=== PATIENT | male | born 1945 | race Caucasian/White ===

== ENCOUNTER 2022-01-13 06:37 | Day surgery (SDC) | payer MEDICARE, OTHER ==
[~2022-01-13] VITALS: Ht 172.7 cm; Wt 79.4 kg
[~2022-01-13 06:37] MED LIST: AMLO-489 PO; ASPI-543 PO; CLON-853 PO; FAMO-12 PO; SOTA80TA PO; TEMA30CA PO
[2022-01-13] MEDS ORDERED: fentaNYL CITRATE 100 MCG/2 ML VL ONE (07:35)
[2022-01-13] MEDS ORDERED: HEPARIN SODIUM (PORCINE) 5000 UNITS/ML 1ML VIAL ONE (07:35)
[2022-01-13] MEDS ORDERED: VERAPAMIL 2.5MG/ML INJ 2ML VIAL IV ONE (07:35)
[2022-01-13] MEDS ORDERED: ANGIOMAX 250 MG VIAL IV ONE (07:35)
[2022-01-13] MEDS ORDERED: MIDAZOLAM HCL 2MG/2ML 2ml VIAL (1mg/ml) ONE (07:36)
[2022-01-13] MEDS ORDERED: LIDOCAINE 2%HCL (LOCAL ANESTH.) INJ 10ml MDV ONE (07:36)
[2022-01-13] MEDS ORDERED: SODIUM CHL 0.9% 0 ML ONE (07:36)
[2022-01-13] MEDS ORDERED: IODIXANOL 320MG/ML 100ML BTL IV ONE (07:39)
== END 2022-01-13 12:36 | disposition home or self-care (01) ==
LOC: CATH 06:37
PROVIDERS: ATTEND Internal Medicine Cardiovascular Disease
DX: R94.39 Abnormal result of other cardiovascular function study (principal); I25.10 Atherosclerotic heart disease of native coronary artery without angina pectoris; I10 Essential (primary) hypertension; Z20.822 Contact with and (suspected) exposure to COVID-19; Z82.49 Family history of ischemic heart disease and other diseases of the circulatory system; Z83.3 Family history of diabetes mellitus; Z87.891 Personal history of nicotine dependence
CPT/HCPCS: 93458; C1769; C1894; J1644; J2001; J2250; J3010; J7040; Q9967; U0003; 99152; 99153

== ENCOUNTER 2024-04-10 08:46 | Inpatient (IN) | payer MEDICARE, OTHER ==
[~2024-04-10] VITALS: Ht 167.6 cm; Wt 79.6 kg
[~2024-04-10 08:46] MED LIST changes: -AMLO-489 PO; +AMLO1TAB22 PO
[2024-04-10] MEDS ORDERED: amLODIPine BESYLATE 5 MG TAB PO ONE (10:15)
[2024-04-10 10:28] VITALS: PULSE 47; RESP 16; O2SAT 97
[2024-04-10 10:41] LABS: Basophils # (auto) 0.1 10 ^3/uL (0-0.2); Basophils % (auto) 1.1 % (0.0-2.0); Eosinophils # (auto) 0.3 10 ^3/uL (0-0.8); Hematocrit 44.6 % (41.0-53.0); Hemoglobin 15.8 g/dL (13.5-17.5); Lymphocytes # (auto) 1.5 10 ^3/uL (0.4-5.4); Lymphocytes % (auto) 16.9 % (10.0-50.0); Mean Corpuscular Hemoglobin 33.9 pg (28.0-32.0); Mean Corpuscular Hgb Conc. 35.4 g/dL (32.0-36.0); Mean Corpuscular Volume 95.7 fL (80.0-100.0); Monocytes # (auto) 0.6 10 ^3/uL (0-1.3); Monocytes % (auto) 6.8 % (0.0-12.0); Neutrophils # (auto) 6.2 10 ^3/uL (1.6-8.6); Neutrophils % (auto) 72.2 % (37.0-80.0); Platelet Count (auto) 186 10^3/uL (140-450); Red Blood Cells 4.66 10^6/uL (4.5-5.90); Red Cell Distribution Width 15.1 % (11.8-14.3); White Blood Cell 8.6 10^3/uL (4.4-10.8)
[2024-04-10 10:49] LABS: Chloride 107 mmol/L (98-107); Potassium 4.4 mmol/L (3.5-5.1); Sodium 139 mmol/L (136-145)
[2024-04-10 10:50] LABS: Anion Gap 2 (5-15); Calcium 10.1 mg/dL (8.7-10.4); Carbon Dioxide 30 mmol/L (20-30)
[2024-04-10 10:55] LABS: BUN/Creatinine Ratio 7.4 (10.0-20.0); Blood Urea Nitrogen 7 mg/dL (9-23); Glucose 94 mg/dL (74-106)
[2024-04-10] MEDS ORDERED: MORPHINE SULFATE INJ 2 MG/ml SYRG IV PRN (14:00)
[2024-04-10] MEDS: SODIUM CHLORIDE 0.9% 1,000 ML IV SCH (14:00)
[2024-04-10] MEDS ORDERED: NITROGLYCERIN 0.4 MG SL TAB SL PRN (14:00)
[2024-04-10] MEDS ORDERED: ONDANSETRON HCL 4 MG/2 ML VIAL IV PRN (14:00)
[2024-04-10] MEDS ORDERED: FAMOTIDINE 20 MG TAB PO SCH (14:30)
[2024-04-10] MEDS ORDERED: PATIENTS OWN MEDICATION (Clonazepam 1 TAB) PO SCH (14:30)
[2024-04-10] MEDS ORDERED: TEMAZEPAM 15 MG PO SCH (14:30)
[2024-04-10 18:24] VITALS: PULSE 47; RESP 16; O2SAT 94
[2024-04-10 20:00] VITALS: PULSE 50; RESP 20; O2SAT 95
[2024-04-10 21:00] VITALS: BP 157/75; PULSE 50; RESP 20; TEMP 98; O2SAT 95
[2024-04-10] MEDS ORDERED: SOTALOL HCL 80 MG TAB PO SCH (22:00)
[2024-04-10] MEDS: SOTALOL HCL 80 MG TAB PO SCH (22:00)
[2024-04-11] VITALS (10 sets, daily range): BP systolic 117–163; BP diastolic 63–86; PULSE 19–56; RESP 14–22; TEMP 97.8–98.1; O2SAT 94–99
[2024-04-11 06:49] LABS: Alanine Aminotransferase 24 U/L (7-40); Albumin 4.1 g/dL (3.2-4.8); Alkaline Phosphatase 45 U/L (46-116); Anion Gap 6 (5-15); Aspartate Aminotransferase 15 U/L (13-40); BUN/Creatinine Ratio 9.5 (10.0-20.0); Blood Urea Nitrogen 8 mg/dL (9-23); Calcium 9.5 mg/dL (8.7-10.4); Carbon Dioxide 27 mmol/L (20-30); Chloride 106 mmol/L (98-107); Glucose 91 mg/dL (74-106); Potassium 3.7 mmol/L (3.5-5.1); Sodium 139 mmol/L (136-145)
[2024-04-11 06:50] LABS: Bilirubin, Total 1.7 mg/dL (0.2-1.0); Total Protein 6.4 g/dL (5.7-8.2)
[2024-04-11 07:01] LABS: Urine Bacteria None Seen /hpf (None Seen); Urine WBC None Seen /hpf (0 - 3)
[2024-04-11 07:17] LABS: Urine Blood Negative /uL (Negative); Urine Clarity Clear (Clear); Urine Color Light-Yellow (Yellow); Urine Protein, UAD Negative (Negative); Urine Urobilinogen Normal (Negative); Urine pH 6.5 (5.0-9.0)
[2024-04-11 07:41] LABS: Basophils # (auto) 0.1 10 ^3/uL (0-0.2); Basophils % (auto) 1.1 % (0.0-2.0); Eosinophils # (auto) 0.2 10 ^3/uL (0-0.8); Eosinophils % (auto) 3.1 % (0.0-7.0); Hematocrit 41.6 % (41.0-53.0); Hemoglobin 14.8 g/dL (13.5-17.5); Lymphocytes # (auto) 1.4 10 ^3/uL (0.4-5.4); Lymphocytes % (auto) 18.9 % (10.0-50.0); Mean Corpuscular Hemoglobin 33.7 pg (28.0-32.0); Mean Corpuscular Hgb Conc. 35.4 g/dL (32.0-36.0); Monocytes # (auto) 0.6 10 ^3/uL (0-1.3); Monocytes % (auto) 8.1 % (0.0-12.0); Neutrophils # (auto) 5.2 10 ^3/uL (1.6-8.6); Neutrophils % (auto) 68.8 % (37.0-80.0); Nucleated Red Blood Cells % 0.1 %; Platelet Count (auto) 169 10^3/uL (140-450); Red Blood Cells 4.38 10^6/uL (4.5-5.90); Red Cell Distribution Width 14.7 % (11.8-14.3); White Blood Cell 7.5 10^3/uL (4.4-10.8)
[2024-04-11] MEDS: ASPirin-EC 81 mg tab PO SCH (10:15)
[2024-04-11] MEDS: amLODIPine BESYLATE 5 MG TAB PO SCH (10:15)
[2024-04-11] MEDS: DOCUSATE SOD 100 MG CAP PO PRN (10:23)
[2024-04-11] MEDS: ACETAMINOPHEN 325 MG TAB PO PRN (15:14)
[2024-04-11] MEDS: clonazePAM 0.5 MG TAB PO PRN (17:26)
[2024-04-11] MEDS: TEMAZEPAM 15 MG CAP PO PRN (22:06)
[2024-04-12] VITALS (10 sets, daily range): BP systolic 108–163; BP diastolic 52–79; PULSE 51–74; RESP 16–18; TEMP 97.8–98.2; O2SAT 95–100
[2024-04-12] MEDS: LORazepam 2MG/ML-1ML VIAL IV ONE (09:17)
[2024-04-12] MEDS: PANTOPRAZOLE 40 MG TAB PO SCH (17:27)
[2024-04-13 01:00] VITALS: BP 142/75; PULSE 58; RESP 18; TEMP 98; O2SAT 97
[2024-04-13 05:00] VITALS: BP 138/76; PULSE 57; RESP 18; TEMP 97.8; O2SAT 97
[2024-04-13 08:00] VITALS: PULSE 53; RESP 16; O2SAT 99
[2024-04-13 09:00] VITALS: BP 142/66; PULSE 63; RESP 17; TEMP 98.3; O2SAT 92
[2024-04-13] MEDS ORDERED: BUTA-259 PO (11:56)
[2024-04-13 12:29] VITALS: BP 142/66; PULSE 63; TEMP 36.8
== END 2024-04-13 13:15 | disposition home or self-care (01) | DRG 552 ==
LOC: ER 08:46 → OVERFLOW 14:15 → WEST WING 18:37
PROVIDERS: ADMIT Nurse Practitioner Family; ATTEND Family Medicine
PROC: 5A09357 Assistance with Respiratory Ventilation, Less than 24 Consecutive Hours, Continuous Positive Airway Pressure (ICD-10-PCS; principal; 2024-04-11)
DX: M54.2 Cervicalgia (principal); I47.10 Supraventricular tachycardia, unspecified; R51.9 Headache, unspecified; I10 Essential (primary) hypertension; I49.3 Ventricular premature depolarization; F41.9 Anxiety disorder, unspecified; Z90.49 Acquired absence of other specified parts of digestive tract; Z83.3 Family history of diabetes mellitus; Z82.49 Family history of ischemic heart disease and other diseases of the circulatory system; Z85.820 Personal history of malignant melanoma of skin
CPT/HCPCS: 36415; 70450; 70551; 80048; 80053; 81001; 83880; 84484; 85025; 93005; 93886; 94660; 96360; G0378

== ENCOUNTER 2025-02-05 07:56 | Emergency (ER) | payer MEDICARE, OTHER ==
[~2025-02-05] VITALS: Ht 172.7 cm; Wt 98.4 kg
[~2025-02-05 07:56] MED LIST changes: +BUTA-259 PO
--- NOTE | 2025-02-05 08:05 | ED.PDOC ---
Eye-HPI HPI Comments 79-year-old male presents to the emergency department which she complaining of left ear pain. Patient states that he has been experiencing left ear pain with associated intermittent hearing loss x1 month. Patient endorses being seen by EENT specialist and being departed home with no significant findings. Patient denies foreign body insertion, fever, recent swimming, headache, or sore-throat. No other symptoms or modifying factors present at this time. Time Seen by MD: 08:00 Primary Care Provider: LUIS Kenney Notes: Nurses Notes, Medications, Allergies Allergies: Coded Allergies: NO KNOWN ALLERGIES (Unverified , 07/22/16) Home Meds Active Scripts Csjjilcrkj-Tbzoojgobiqqz-Raaru (FIORICET TABLET) 1 Tab Tb, 1 TAB PO TID PRN, #20 TAB Prov:BEVERLY SCHMIDT MD 04/13/24 Reported Medications Aspirin (Aspir-Low) 81 Mg Tab, 81 MG PO DAILY 01/11/22 Temazepam (Temazepam) 30 Mg Cap, 15 MG PO PRN 01/11/22 Clonazepam (Clonazepam) 1 Mg Tab, 1 TAB PO PRN 01/11/22 Famotidine (Famotidine) 20 Mg Tab, 40 MG PO PRN 01/11/22 Sotalol Hcl (Sotalol Hcl) 80 Mg Tab, 40 MG PO BID 01/11/22 Amlodipine Besylate (Amlodipine Besylate) 5 Mg Tab, 10 MG PO DAILY 01/11/22 Information Source: Patient Mode of Arrival: Ambulatory Timing: Months Duration: Since onset Prehospital treatment: None Quality: Pain, Hearing loss Lids: Normal Conjunctiva: Normal Cornea: Normal Pupils: Normal EOM: Normal Fundus: Normal Slit lamp exam: Normal Anterior chamber: Normal Mouth: Normal ENT Ear Exam: Normal Nose: Normal Sinuses: Normal Oropharynx: Normal Onset: Spontaneous Throat Exposed to: None History of: None Last Tetanus: Unknown Modifying factors: Nothing Associated signs and symptoms: None Past Medical History PAST MEDICAL HISTORY: HTN Surgical History: Cholecystectomy, Hernia Repair Family History Family History: Family hx of DM, Family hx of HTN Social History Smoker: Non-Smoker Alcohol: Denies ETOH Use Drugs: Denies Drug Use Lives In: Home Constitutional: denies: chills, diaphoresis, fatigue, fever, malaise, sweats, weakness, others EENTM: reports: ear pain; denies: blurred vision, double vision, ear bleeding, ear discharge, ear drainage, ear ringing, eye pain, eye redness, hearing loss, mouth pain, mouth swelling, nasal discharge, nose bleeding, nose congestion, nose pain, photophobia, tearing, throat pain, throat swelling, voice changes, others Respiratory: denies: cough, hemoptysis, orthopnea, SOB at rest, shortness of breath, SOB with excertion, stridor, wheezing, others Cardiovascular: denies: chest pain, dizzy spells, diaphoresis, Dyspnea on exertion, edema, irregular heart beat, left arm pain, lightheadedness, palpitations, PND, syncope, others Gastrointestinal: denies: abdomen distended, abdominal pain, blood streaked bowels, constipated, diarrhea, dysphagia, difficulty swallowing, hematemesis, melena, nausea, poor appetite, poor fluid intake, rectal bleeding, rectal pain, vomiting, others Genitourinary: denies: burning, dysuria, flank pain, frequency, hematuria, incontinence, penile discharge, penile sore, pain, testicle pain, testicle swe lling, urgency, others Neurological: denies: dizziness, fainting, headache, left sided numbness, left sided weakness, numbness, paresthesia, pre-existing deficit, right sided numbness, right sided weakness, seizure, speech problems, tingling, tremors, weakness, others Musculoskeletal: denies: back pain, gout, joint pain, joint swelling, muscle pain, muscle stiffness, neck pain, others Integumetry: denies: bruises, change in color, change in hair/nails, dryness, laceration, lesions, lumps, rash, wounds, others Allergic/Immunocompromised: denies: Difficulty Healing, Frequent Infections, Hives, Itching, others Hematologic/Lymphatic: denies: anemia, blood clots, easy bleeding, easy bruising, swollen glands, others Endocrine: denies: excessive hunger, excessive sweating, excessive thirst, excessive urination, flushing, intolerance to cold, intolerance to heat, unexplained weight gain, unexplained weight loss, others Psychiatric: denies: anxiety, bipolar disorder, depression, hopeless, panic disorder, schizophrenia, sleepless, suicidal, others All Other Systems: Reviewed and Negative Physical Exam General Appearance: Moderate Distress HEENT: Normal ENT Inspection, Pharynx Normal, TMs Normal Neck: Full Range of Motion, Non-Tender, Normal, Normal Inspection Respiratory: Chest Non-Tender, Lungs Clear, No Accessory Muscle Use, No Respiratory Distress, Normal Breath Sounds Cardiovascular: No Edema, No JVD, No Murmur, No Gallop, Normal Peripheral Pulses, Regular Rate/Rhythm Breast Exam: Deferred Gastrointestinal: No Organomegaly, Non Tender, No Pulsatile Mass, Normal Bowel Sounds, Soft Genitalia: Deferred Pelvic: Deferred Rectal: Deferred Extremities: No calf tenderness, Normal capillary refill, Normal inspection, Normal range of motion, Non-tender, No pedal edema Musculoskeletal : Apperance: Normal Neurologic: Alert, switchboard inspector II-XII nml as Tested, No Motor Deficits, Normal Affect, Normal Mood, No Sensory Deficits Cerebellar Function: Normal Reflexes: Normal Skin: Dry, Normal Color, Warm Peripheral Pulses: 3+ Radial (R), 3+ Radial (L) Lymphatic: No Adenopathy Was a procedure done? Was a procedure done?: No EENT DIFF Eye: N/A Ear: Cerumen Impaction, Otitis Media Nose: N/A Mouth: N/A Sore Throat: N/A X-Ray, Labs, Meds, VS Vital Signs Date Time Temp Pulse Resp B/P (MAP) Pulse Ox O2 Delivery O2 Flow Rate FiO2 02/05/25 08:13 97.8 53 20 145/70 (95) 97 97.8 Patient alert. Complaining of hearing problem in the left side. Vitals stable. Answering questions. Examination pristine of the ear. Possibly inner ear. Presbycusis. Explained to the patient. Possibly need an outpatient MRI of the inner ear. Was told to follow up with the ENT surgeon. Was told to follow up with his primary care physician. Was told to come back if there is any problem. Time of 1ST Reevaluation: 08:30 Reevaluation 1ST: Improved Patient Education/Counseling: Diagnosis, Treatment Family Education/Counseling: No Family Present SEPSIS Sepsis Screen Vital Signs Date Time Temp Pulse Resp B/P (MAP) Pulse Ox O2 Delivery O2 Flow Rate FiO2 02/05/25 08:13 97.8 53 20 145/70 (95) 97 97.8 Departure 1 Departure Time of Disposition: 09:11 Impression: Primary Impression: Presbycusis Qualified Codes: H91.12 - Presbycusis, left ear Disposition: 01 HOME / SELF CARE / HOMELESS Condition: Good Discharged With: Self Critical Care Note Critical Care Time?: No Stability Stability form required: No Heart Score Heart Score: Heart Score Response (Comments) Value History N/A 0 EKG N/A 0 Age N/A 0 Risk Factors N/A 0 Troponin N/A 0 Total 0 I personally scribed for MAGUI OH MD ([email or web address]) on 02/05/25 at 08:05. Electronically submitted by Raisa Denny ([email or web address]). I personally scribed for MAGUI OH MD ([email or web address]) on 02/05/25 at 08:22. Electronically submitted by Raisa Denny ([email or web address]). MAGUI OH MD Feb 05, 2025 08:05
[2025-02-05 08:13] VITALS: BP 145/70; PULSE 53; RESP 20; TEMP 97.8; O2SAT 97
== END 2025-02-05 10:11 | disposition home or self-care (01) ==
LOC: ER 07:56
DX: H91.12 Presbycusis, left ear (principal); I10 Essential (primary) hypertension; Z79.82 Long term (current) use of aspirin; Z79.899 Other long term (current) drug therapy; Z90.49 Acquired absence of other specified parts of digestive tract; Z98.890 Other specified postprocedural states
CPT/HCPCS: 82947; 82962